=== PATIENT | female | born 1945 | race Caucasian/White ===

== ENCOUNTER 2016-11-17 12:19 | Emergency (ER) | payer BC, MEDICARE, SELFPAY ==
[2016-11-17 12:36] LABS: #Basophils 0.1 thou/uL (0.0-0.2); #Eosinphils 0.2 thou/uL (0.0-0.7); #Lymphocytes 2.9 thou/uL (1.20-3.40); #Monocytes 0.6 thou/uL (0.11-0.59); #Neutrophils 7.4 thou/uL (1.40-6.50); %Basophils 0.8 % (0.0-1.0); %Eosinophils 1.9 % (0.0-10.0); %Lymphocytes 25.9 % (21.0-51.0); %Monocytes 5.2 % (0.0-10.0); %Neutrophils 66.3 % (42.0-75.0); Hemoglobin 14.4 g/dL (12.0-16.0); Mean Corpuscular HGB CONC 32.2 g/dL (32.0-36.0); Mean Corpuscular Hemoglobin 26.3 pg (27.0-31.0); Mean Corpuscular Volume 81.8 fl (81.0-99.0); Mean Platelet Volume 7.3 fL (7.4-10.4); Platelet Count 237 thou/uL (130-400); RBC Distribution Width 13.4 % (11.5-14.5); Red Blood Cell (RBC) Count 5.48 mill/uL (4.20-5.40); White Blood Cell (WBC) Count 11.2 thou/uL (4.8-10.8)
[2016-11-17] MEDS ORDERED: Labetalol HCl 100 MG/20 ML VIAL ONE (12:37)
[2016-11-17 12:38] LABS: Prothrombin Time 12.9 SEC (12.0-14.7)
[2016-11-17 12:51] LABS: ALT (SGPT) 10 U/L (8-55); AST (SGOT) 10 U/L (5-34); Albumin 3.6 g/dL (3.4-4.8); Alkaline Phosphatase 80 U/L (40-150); Anion Gap 13 mmol/L (10-20); BUN (Urea Nitrogen) 17 mg/dL (9.8-20.1); Bilirubin, Total 0.6 mg/dL (0.2-1.2); CK (CPK) 25 U/L (29-168); Calc. Creatinine Clearance 0 mL/min (70-130); Calcium 9.4 mg/dL (7.8-10.44); Carbon Dioxide 22 mmol/L (23-31); Chloride 102 mmol/L (98-107); Estimated GFR-MDRD 52; Globulin 4.1 g/dL (2.4-3.5); Glucose 277 mg/dL (83-110); Potassium 4.4 mmol/L (3.5-5.1); Protein, Total 7.7 g/dL (6.0-8.3); Sodium 133 mmol/L (136-145)
--- NOTE | 2016-11-17 12:51 | CT ---
HEAD CT WITHOUT CONTRAST: 11/17/2016 HISTORY: Possible stroke. Right-sided weakness. COMPARISON: None. TECHNIQUE: Serial axial CT imaging is obtained at 5 mm intervals, from the vertex through the skull base, witho ut contrast. FINDINGS: There is a peripheral, densely calcified, 1.8 cm lesion within the posterior and lateral aspect of t he middle cranial fossa, on the left, likely on the basis of a calcified meningioma. 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 There is no intracranial hemorrhage, midline shift, or mass effect. There is atherosclerotic calcification involving the cavernous carotid arteries. There is no acute osseous abnormality seen. IMPRESSION: No intracranial hemorrhage. Additional findings as detailed above. Results were called to Dr. Ryan Messina at 10:35 a.m. on 11/17/2016. CODE CR POS: RICKEY
[2016-11-17 12:52] LABS: CKMB 1.1 ng/mL (0-6.6); Troponin I Less than 0.010 ng/mL (< 0.028)
[2016-11-17] MEDS ORDERED: Nitroglycerin 50 MG/250 ML BOT 250 ML ONE (13:18)
--- NOTE | 2016-11-17 14:40 | RAD ---
UPRIGHT PORTABLE CHEST ONE VIEW: History: 71-year-old female with CVA. Comparison: 03-07-08 FINDINGS: Monitor leads overlie the chest. Heart size is upper range of normal limits. Atherosclerosis of the aorta. No confluent pneumonia, overt edema, or pleural effusion. IMPRESSION: Borderline sized heart. No other acute process. POS: ALIYA
== END 2016-11-17 13:30 | disposition home or self-care (01) ==
LOC: MADERS 12:19
DX: I63.9 Cerebral infarction, unspecified (principal); E11.9 Type 2 diabetes mellitus without complications; I10 Essential (primary) hypertension; F17.210 Nicotine dependence, cigarettes, uncomplicated; I63.541 Cerebral infarction due to unspecified occlusion or stenosis of right cerebellar artery
CPT/HCPCS: 36415; 51702; 70450; 71010; 80053; 82550; 82553; 83735; 83880; 84484; 85025; 85610; 85730; 93005; 94760; 96374; 96375; 99292; J2997